=== PATIENT | female | born 1940 | race Two or more races ===

== ENCOUNTER 2022-03-24 09:27 | Inpatient (IN) | payer MEDICARE, MEDICAID ==
[~2022-03-24] VITALS: Ht 165.1 cm; Wt 68.0 kg
[2022-03-24] MEDS ORDERED: IV NS 0.9% 1,000 ML BAG IV ONE (10:00)
[2022-03-24 10:26] LABS: BASOPHILS % (AUTO) 0.7 % (0.0-2.0); EOSINOPHILS % (AUTO) 5.3 % (0.0-6.0); HEMATOCRIT 39 % (33-45); HEMOGLOBIN 12.8 g/dL (11.5-14.8); LYMPHOCYTES # (AUTO) 1.6 K/uL (0.8-4.8); LYMPHOCYTES % (AUTO) 25.1 % (20.0-44.0); MEAN CORPUSCULAR HGB CONC 32 g/dl (31.0-36.0); MEAN CORPUSCULAR VOLUME 86 fL (82-100); MONOCYTES # (AUTO) 0.5 K/uL (0.1-1.30); MONOCYTES % (AUTO) 8.4 % (2.0-12.0); NEUTROPHILS # (AUTO) 3.9 K/uL (1.8-8.9); NEUTROPHILS % (AUTO) 60.5 % (43.0-81.0); PLATELET COUNT (AUTO) 193 K/uL (150-450); RED BLOOD CELL COUNT(AUTO) 4.56 MIL/uL (4.0-5.2); WHITE BLOOD COUNT (AUTO) 6.4 K/uL (4.3-11.0)
[2022-03-24 10:50] LABS: CALCIUM, SERUM 8.7 mg/dL (8.5-10.1)
[2022-03-24 10:56] LABS: ALBUMIN 3.3 g/dL (3.4-5.0); BILIRUBIN,DIRECT 0.1 mg/dL (0.0-0.2); BILIRUBIN,TOTAL 0.3 mg/dL (0.2-1.0)
[2022-03-24 11:04] LABS: THYROID STIMULATING HORMONE 8.861 uIU/mL (0.358-3.74)
--- NOTE | 2022-03-24 11:55 | NUR ---
SHOSHANA, pt has low blood pressure, was found sitting on floor in home, career development manager found pt called [id number]
--- NOTE | 2022-03-24 11:56 | NUR ---
F/C inserted, patent flushing intact, urine is a clear yellow color, no foul odor noted normal
--- NOTE | 2022-03-24 11:56 | NUR ---
IV R AC, patent flushing, patent intact receiving MD orders of NS
--- NOTE | 2022-03-24 11:57 | NUR ---
pt has her point of care specialist and her daughter at bed side at this time, given warm blankets and socks for comfort and made comfortable in bed.
[2022-03-24] MEDS ORDERED: PARO20TA7 PO (12:55)
[2022-03-24] MEDS ORDERED: FERR325T29 PO (12:55)
[2022-03-24] MEDS ORDERED: CLON2TAB11 PO (12:55)
[2022-03-24] MEDS ORDERED: MILN100T PO (12:55)
[2022-03-24] MEDS ORDERED: DONE10TA44 PO (12:55)
[2022-03-24] MEDS ORDERED: FLUD0.1T3 PO (12:55)
[2022-03-24] MEDS ORDERED: ERGO500093 PO (12:55)
[2022-03-24] MEDS ORDERED: PREG50CA PO (12:55)
[2022-03-24] MEDS ORDERED: OMEP20CA15 PO (12:55)
[2022-03-24] MEDS ORDERED: AMIT100T2 PO (12:55)
[2022-03-24] MEDS ORDERED: LEVO100T9 PO (12:55)
[2022-03-24] MEDS ORDERED: CELE-85 PO (12:55)
[2022-03-24] MEDS ORDERED: PRIM50TA27 PO (12:55)
[2022-03-24] MEDS ORDERED: PRAV80TA21 PO (12:55)
[2022-03-24] MEDS ORDERED: ICOS1CAP PO (12:55)
--- NOTE | 2022-03-24 13:08 | NUR ---
MOVE SHEET SUBMITTED.
--- NOTE | 2022-03-24 13:29 | NUR ---
[facility] CALLED PUBLIC ADMINISTRATION PROFESSOR PAGED.
--- NOTE | 2022-03-24 13:39 | NUR ---
CALLED RADIOLOGY FOR CT SCAN, WILL FOOT DOCTOR PT
[2022-03-24] MEDS ORDERED: ONDANSETRON HCL/PF 4 MG/2 ML VIAL IVP PRN (14:00)
[2022-03-24] MEDS ORDERED: ACETAMINOPHEN 325 MG TABLET PO PRN (14:00)
[2022-03-24] MEDS ORDERED: ZOLPIDEM TARTRATE 5 MG TABLET PO PRN (14:00)
[2022-03-24] MEDS ORDERED: MAGNESIUM HYDROXIDE 30 ML UDC PO PRN (14:00)
[2022-03-24] MEDS ORDERED: Z GUARD REMEDY 4 OZ OINT TP PRN (14:00)
[2022-03-24] MEDS ORDERED: MAG HYDROX/AL HYDROX/SIMETH 30 ML UDC PO PRN (14:00)
--- NOTE | 2022-03-24 14:05 | NUR ---
PT RETURNED FROM RADIOLOGY
--- NOTE | 2022-03-24 14:08 | NUR ---
Urine specimen collect - sent to lab
--- NOTE | 2022-03-24 15:29 | NUR ---
pt to be admitted to room 312 - 1 , Report given to Stephanie AMADO on third floor, IV kept intact KVO, transferred with F/C as well, intact, patent urine flowing with gravity.
--- NOTE | 2022-03-24 16:10 | NUR ---
RN ADMITTING NOTE PT ARRIVED ON GURNEY TO UNIT ACCOMPANIED BY DAUGHTER AND 2 NURSES FROM THE ED. PT IS FARCI SPEAKING AND UNABLE TO UNDERSTAND KYRGY[place]. FAMILY PREFERS TO TRANSLATE. PT IS A/OX1-2, EPISODES OF CONFUSION BUT ABLE TO MAKE NEEDS KNOWN. PT IS ON ROOM AIR SATURATING AT 99% WITH WHEEZING WHILE RESTING IN BED. SUPPLEMENTAL OXYGEN DECLINED. TELE MONITOR IN PLACE READING SR, 75BPM. NO CARDIAC DISTRESS NOTED. BUTTERFIELD CATHETER IN PLACE DRAINING YELLOW URINE. PATIENT DENIES PAIN AT THIS TIME SAFETY PRECAUTIONS IN PLACE WITH BED IN LOWEST LOCKED POSITION,SIDE RAILS UP X3, CALL LIGHT AND TRY WITHIN REACH. ALL NEEDS MET AT THIS TIME. WILL CONTINUE TO MONITOR.
[2022-03-24] MEDS ORDERED: PANTOPRAZOLE 40 MG TABLET.DR PO ONE (16:15)
[2022-03-24 16:30] LABS: BILIRUBIN,URINE NEGATIVE (NEGATIVE); COLOR,URINE YELLOW (YELLOW); LEUKOCYTE ESTERASE ,URINE 1+ (NEGATIVE); NITRITE, URINE NEGATIVE (NEGATIVE); PROTEIN,URINE NEGATIVE (NEGATIVE); UGLUCOSE NEGATIVE (NEGATIVE); UROBILINOGEN,URINE 0.2 EU/dL (0.2)
[2022-03-24] MEDS ORDERED: Medication Not On Formulary EA (Icosapent Ethyl (Vascepa) 2 CAP) PO SCH (17:00)
[2022-03-24] MEDS ORDERED: OMEPRAZOLE 20 MG CAPSULE.DR PO SCH (17:00)
[2022-03-24] MEDS: IV NS 0.9% 1,000 ML IV PRN (17:17)
[2022-03-24 17:50] LABS: BACTERIA,URINE 1+ /HPF (None Seen); RBC,URINE 21-50 /HPF (0-2); SQUAMOUS EPITHELIAL CELL,UR 0-2 /HPF (None Seen)
--- NOTE | 2022-03-24 18:49 | NUR ---
CANINE SERVICE INSTRUCTOR TRAINER CLOSING NOTE PT IS AWAKE IN BED WITH DAUGHTER AT BEDSIDE. PT IS FARCI SPEAKING AND UNABLE TO UNDERSTAND [place]. FAMILY PREFERS TO TRANSLATE. PT IS A/OX1-2, ABLE TO MAKE NEEDS KNOWN. PT IS ON ROOM AIR SATURATING AT 99% WITH WHEEZING WHILE RESTING IN BED. SUPPLEMENTAL OXYGEN DECLINED. TELE MONITOR IN PLACE READING SR, 70BPM. NO CARDIAC DISTRESS NOTED. BUTTERFIELD CATHETER IN PLACE DRAINING YELLOW URINE. PATIENT DENIES PAIN AT THIS TIME SAFETY PRECAUTIONS IN PLACE WITH BED IN LOWEST LOCKED POSITION,SIDE RAILS UP X3, CALL LIGHT AND TRY WITHIN REACH. ALL NEEDS MET AT THIS TIME. WILL ENDORSE PAVAN TO TOGGLE PRESS OPERATOR NURSE
--- NOTE | 2022-03-24 19:30 | NUR ---
CHARACTER ARTIST OPENING NOTE RECEIVED PATIENT AWAKE IN BED WITH DAUGHTER AT BEDSIDE. PT IS A/O TIMES 3 ABLE TO MAKE NEEDS KNOWN IN FARSI LANGUAGE. ON ROOM AIR AND TOLERATING WELL. NOTED WITH AUDIBLE WHEEZING WHILE RESTING IN BED. WILL INFORM RT TO GIVE PRN BREATHING TREATMENT. ON TELE MONITOR READING SR, 76 BPM. NO PAIN NOTED. NO SOB NOTED. NO FACIAL GRIMACING NOTED IN PRESENCE OF THE DAUGHTER. BUTTERFIELD CATHETER IN PLACE DRAINING YELLOW URINE. ALL SAFETY PRECAUTIONS IN PLACE WITH BED IN LOWEST LOCKED POSITION,SIDE RAILS UP X3, CALL LIGHT AND TABLE WITHIN REACH. ALL NEEDS MET AT THIS TIME. EDUCATE AND REMIND THE PATIENT IN FARSI LANGUAGE TO PRESS CALL LIGHT FOR ANY ASSISTANCE. PATIENT VERBALIZED UNDERSTANDING. WILL CONTINUE TO MONITOR CLOSELY.
[2022-03-24 20:00] VITALS: BP 141/77
[2022-03-24] MEDS: ALBUTEROL FS 2.5 MG/0.5 ML VIAL.NEB NEB SCH (20:54)
--- NOTE | 2022-03-24 20:54 | NUR ---
RT RN ANI ADVISE PT HAS AUDIBLE WHEEZING, PRN NEB TX GIVEN
[2022-03-25] VITALS: BP 127/59
[2022-03-25 04:00] VITALS: BP 154/72
[2022-03-25] MEDS: IV NS 0.9% 1,000 ML IV PRN ×2 (04:31→18:34)
--- NOTE | 2022-03-25 07:00 | NUR ---
PROSTHETICS ASSISTANT OPENING NOTES PATIENT LAYING IN BED, A/O X 2 IN FARSI LANGUAGE BUT WITH CONFUSION, TOLERATING WELL ON ROOM AIR WITH NO S/S RESPIRATORY DISTRESS. NO COMPLAINTS OF PAIN OR DISCOMFORT AT THIS TIME. BUTTERFIELD CATHETER IN PLACE DRAINING CLEAR YELLOW URINE TO GRAVITY. R WRIST # 22 IV WITH NS @ 75 ML/HR. SAFETY MEASURES IN PLACE: BED IN LOWEST LOCKED POSITION, SIDE RAILS UP X 2, CALL LIGHT WITHIN REACH. WILL CONTINUE TO MONITOR. Addendum: 03/25/22 at 0858 by GORDO POLANCO RN TELE MONITOR IN PLACE READING SINUS RHYTHM 72
[2022-03-25 07:12] LABS: BILIRUBIN,URINE NEGATIVE (NEGATIVE); COLOR,URINE YELLOW (YELLOW); LEUKOCYTE ESTERASE ,URINE 1+ (NEGATIVE); NITRITE, URINE NEGATIVE (NEGATIVE); PH,URINE 6.5 (5.0-8.0); PROTEIN,URINE NEGATIVE (NEGATIVE); UGLUCOSE NEGATIVE (NEGATIVE); UROBILINOGEN,URINE 0.2 EU/dL (0.2)
[2022-03-25 07:16] LABS: BACTERIA,URINE Few /HPF (None Seen); SQUAMOUS EPITHELIAL CELL,UR Few /HPF (None Seen)
[2022-03-25] MEDS: PANTOPRAZOLE 40 MG TABLET.DR PO SCH ×2 (07:30→08:25)
--- NOTE | 2022-03-25 07:30 | NUR ---
SHIP RIGGER CLOSING NOTE PATIENT AWAKE IN BED. PT IS A/O TIMES 2 ABLE TO MAKE NEEDS KNOWN IN FARSI LANGUAGE. ON ROOM AIR AND TOLERATING WELL. NOTED WITH AUDIBLE WHEEZING WHILE RESTING IN BED. ON TELE MONITOR READING SR, 75 BPM. NO PAIN NOTED. NO SOB NOTED. NO FACIAL GRIMACING NOTED . BUTTERFIELD CATHETER IN PLACE DRAINING YELLOW URINE. URINE OUTPUT NOTED 2200 ML. ALL SAFETY PRECAUTIONS IN PLACE WITH BED IN LOWEST LOCKED POSITION,SIDE RAILS UP X3, CALL LIGHT AND TABLE WITHIN REACH. ALL NEEDS MET AT THIS TIME. EDUCATE AND REMIND THE PATIENT IN FARSI LANGUAGE TO PRESS CALL LIGHT FOR ANY ASSISTANCE. PATIENT VERBALIZED UNDERSTANDING. WILL ENDORSE FOR PAVAN.
[2022-03-25 07:35] LABS: BASOPHILS % (AUTO) 0.9 % (0.0-2.0); EOSINOPHILS % (AUTO) 4.3 % (0.0-6.0); HEMATOCRIT 38 % (33-45); HEMOGLOBIN 12.3 g/dL (11.5-14.8); LYMPHOCYTES # (AUTO) 1.5 K/uL (0.8-4.8); LYMPHOCYTES % (AUTO) 27.1 % (20.0-44.0); MEAN CORPUSCULAR HGB CONC 33 g/dl (31.0-36.0); MEAN CORPUSCULAR VOLUME 86 fL (82-100); MONOCYTES # (AUTO) 0.4 K/uL (0.1-1.30); MONOCYTES % (AUTO) 7.5 % (2.0-12.0); NEUTROPHILS # (AUTO) 3.4 K/uL (1.8-8.9); NEUTROPHILS % (AUTO) 60.2 % (43.0-81.0); PLATELET COUNT (AUTO) 182 K/uL (150-450); RED BLOOD CELL COUNT(AUTO) 4.38 MIL/uL (4.0-5.2); WHITE BLOOD COUNT (AUTO) 5.6 K/uL (4.3-11.0)
[2022-03-25 07:58] LABS: ALBUMIN 3.1 g/dL (3.4-5.0); BILIRUBIN,TOTAL 0.3 mg/dL (0.2-1.0); CALCIUM, SERUM 8.1 mg/dL (8.5-10.1); CREATININE 0.9 mg/dL (0.6-1.3); MAGNESIUM 2.3 mg/dL (1.8-2.4); PHOSPHORUS 2.9 mg/dL (2.5-4.9); POTASSIUM 3.7 mmol/L (3.5-5.1); TOTAL PROTEIN, SERUM 6.7 g/dL (6.4-8.2)
[2022-03-25 08:00] VITALS: BP 132/71
[2022-03-25] MEDS: LEVOTHYROXINE SODIUM 100 MCG TABLET PO SCH ×2 (08:24→08:51)
[2022-03-25] MEDS: FLUDROCORTISONE 0.1 MG TABLET PO SCH ×2 (08:24→08:51)
[2022-03-25] MEDS: PAROXETINE HCL 20 MG TABLET PO SCH ×2 (08:24→08:51)
[2022-03-25] MEDS: DONEPEZIL 5 MG TABLET PO SCH ×2 (08:25→08:51)
[2022-03-25] MEDS: FERROUS SULFATE (325 MG) 325 MG/TAB TABLET PO SCH ×2 (08:25→08:51)
[2022-03-25] MEDS: PRIMIDONE 50 MG TABLET PO SCH ×2 (08:25→08:51)
[2022-03-25] MEDS ORDERED: LEVOTHYROXINE SODIUM 100 MCG TABLET PO SCH (09:00)
[2022-03-25] MEDS: LEVOFLOXACIN 500 MG /D5W 100ML 500 MG in PREMIX 1 EA IV SCH (09:37)
[2022-03-25] MEDS: ALBUTEROL FS 2.5 MG/0.5 ML VIAL.NEB NEB SCH (18:22)
--- NOTE | 2022-03-25 19:00 | NUR ---
ACCOUNT DIRECTOR CLOSING NOTE PATIENT LAYING IN BED, A/O X 2 IN FARSI LANGUAGE BUT WITH CONFUSION, TOLERATING WELL ON ROOM AIR WITH NO S/S RESPIRATORY DISTRESS. NO COMPLAINTS OF PAIN OR DISCOMFORT AT THIS TIME. TELE MONITOR IN PLACE READING SINUS RHYTHM 70. BUTTERFIELD CATHETER IN PLACE DRAINING CLEAR YELLOW URINE TO GRAVITY. R WRIST # 22 IV WITH NS @ 75 ML/HR. SAFETY MEASURES IN PLACE: BED IN LOWEST LOCKED POSITION, SIDE RAILS UP X 2, CALL LIGHT WITHIN REACH. ALL NEEDS MET. WILL ENDORSE TO PARAMEDICAL AIDE FOR PAVAN. Addendum: 03/25/22 at 1920 by GORDO POLANCO RN 700 ML URINE OUTPUT DURING SHIFT
--- NOTE | 2022-03-25 19:30 | NUR ---
WEIGHER AND MIXER OPENING NOTE RECEIVED PATIENT AWAKE IN BED WITH SON ABHINAV AT BED SIDE. PT IS A/O TIMES 3 ABLE TO MAKE NEEDS KNOWN IN FARSI LANGUAGE. ON TELE MONITOR READING SR, 75BPM. NO PAIN NOTED. NO SOB NOTED. NO FACIAL GRIMACING NOTED . BUTTERFIELD CATHETER IN PLACE DRAINING YELLOW URINE. ALL SAFETY PRECAUTIONS IN PLACE WITH BED IN LOWEST LOCKED POSITION,SIDE RAILS UP X3, CALL LIGHT AND TABLE WITHIN REACH. ALL NEEDS MET AT THIS TIME. EDUCATE AND REMIND THE PATIENT IN FARSI LANGUAGE TO PRESS CALL LIGHT FOR ANY ASSISTANCE. PATIENT VERBALIZED UNDERSTANDING. WILL CONTINUE TO MONITOR CLOSELY.
[2022-03-25 20:00] VITALS: BP 117/54
[2022-03-26] VITALS: BP 134/80
[2022-03-26 04:00] VITALS: BP 129/62
[2022-03-26] MEDS: IV NS 0.9% 1,000 ML IV PRN (06:36)
--- NOTE | 2022-03-26 06:49 | NUR ---
POWER EQUIPMENT TECHNOLOGY INSTRUCTOR CLOSING NOTE PATIENT AWAKE IN BED. PT IS A/O TIMES 2 ABLE TO MAKE NEEDS KNOWN IN FARSI LANGUAGE. ON ROOM AIR AND TOLERATING WELL. ON TELE MONITOR READING SR. NO PAIN NOTED. NO SOB NOTED. NO FACIAL GRIMACING NOTED . BUTTERFIELD CATHETER IN PLACE DRAINING YELLOW URINE. URINE OUTPUT NOTED 600 ML. ALL SAFETY PRECAUTIONS IN PLACE WITH BED IN LOWEST LOCKED POSITION,SIDE RAILS UP X3, CALL LIGHT AND TABLE WITHIN REACH. ALL NEEDS MET AT THIS TIME. EDUCATE AND REMIND THE PATIENT IN FARSI LANGUAGE TO PRESS CALL LIGHT FOR ANY ASSISTANCE. PATIENT VERBALIZED UNDERSTANDING. WILL endorse for gricel.
--- NOTE | 2022-03-26 07:00 | NUR ---
FILTER ASSEMBLER OPENING NOTES PATIENT LAYING IN BED, A/O X 2, FARSI SPEAKING, TOLERATING WELL ON ROOM AIR WITH NO S/S RESPIRATORY DISTRESS. NO COMPLAINTS OF PAIN OR DISCOMFORT AT THIS TIME. TELE MONITOR IN PLACE READING SR. BUTTERFIELD CATH IN PLACE DRAINING CLEAR YELLOW URINE TO GRAVITY. SAFETY MEASURES IN PLACE: BED IN LOWEST LOCKED POSITION, SIDE RAILS UP X 2, CALL LIGHT WITHIN REACH. WILL CONTINUE TO MONITOR.
[2022-03-26] MEDS: PANTOPRAZOLE 40 MG TABLET.DR PO SCH (07:30)
[2022-03-26 08:00] VITALS: BP 165/84
[2022-03-26] MEDS: DONEPEZIL 5 MG TABLET PO SCH (08:20)
[2022-03-26] MEDS: PAROXETINE HCL 20 MG TABLET PO SCH (08:20)
[2022-03-26] MEDS: PRIMIDONE 50 MG TABLET PO SCH (08:20)
[2022-03-26] MEDS: LEVOFLOXACIN 500 MG /D5W 100ML 500 MG in PREMIX 1 EA IV SCH (08:21)
[2022-03-26] MEDS: FERROUS SULFATE (325 MG) 325 MG/TAB TABLET PO SCH (08:55)
[2022-03-26] MEDS: FLUDROCORTISONE 0.1 MG TABLET PO SCH (08:56)
[2022-03-26] MEDS: LEVOTHYROXINE SODIUM 100 MCG TABLET PO SCH (08:56)
[2022-03-26] MEDS ORDERED: LEVO500T90 PO (09:43)
--- NOTE | 2022-03-26 10:45 | NUR ---
MS RN HAND OFF NOTES - RECEIVED REPORT FROM OUTGOING NURSE GORDO. PATIENT AOX2-3 WITH DAUGHTER AT BEDSIDE, PATIENT FOR DC TODAY PER MD, NO ACUTE DISTRESS NOTED, IV ACCESS ON RW G#22 RUNNING NS AT 75 ML/HR, AWAITING PATIENT TO URINATE BEFORE SENDING HOME. WILL CONTINUE TO MONITOR.
--- NOTE | 2022-03-26 11:15 | NUR ---
MS RN NOTES - PATIENT IS NOTED TO HAVE LEFT EYE REDNESS - MD ORDERED Tobramycin Sulfate/Dexameth 1 drop each eye QID for 5 days HOME MEDICATION, DAUGHTER IS AWARE
[2022-03-26] MEDS ORDERED: TOBR5DRO2 EACHEYE (11:20)
--- NOTE | 2022-03-26 13:25 | NUR ---
MS SAMPLE STEAMER NOTES - PT DISCHARGED TO HOME IN STABLE CONDITION. PT AOX3-4, FARSI SPEAKING WITH DAUGHTER NEGIM TRANSLATING. ABLE TO MAKE NEEDS KNOWN. ON ROOM AIR STABLE, NOT IN ANY RESPIRATORY DISTRESS, VITAL SIGNS TAKEN, STABLE AND RECORDED. PT SKIN IS INTACT, REFUSED TO TAKE PICTURES, DENIES PAIN NOR DISCOMFORT AT THIS TIME. NO BELONGINGS ASIDE FROM SHIRT THE DAUGHTER TOOK WITH HER. DISCHARGE INSTRUCTIONS GIVEN TO SON AND DAUGHTER NEGIM. IV ACCESS REMOVED - R WRIST G#22 NO NOTED BLEEDING, DRY PRESSURE GAUZE DRESSING APPLIED AT SITE. PT LEFT THE UNIT AT ROUND 1318 VIA WHEELCHAIR ACCOMPANIED BY STORMY CAIN TO THE LOBBY SAFELY. MD AND CHARGE NURSE AWARE OF THE DC.
== END 2022-03-26 13:25 | disposition home or self-care (01) | DRG 689 ==
LOC: ER 09:40 → TELE 15:32 → MED 03-26 08:26
PROVIDERS: ADMIT Internal Medicine; ATTEND Internal Medicine
DX: N39.0 Urinary tract infection, site not specified (principal); G93.41 Metabolic encephalopathy; E03.9 Hypothyroidism, unspecified; I10 Essential (primary) hypertension; I25.10 Atherosclerotic heart disease of native coronary artery without angina pectoris; Z86.16 Personal history of COVID-19; Z88.0 Allergy status to penicillin; Z88.2 Allergy status to sulfonamides; F32.A Depression, unspecified; F03.90 Unspecified dementia, unspecified severity, without behavioral disturbance, psychotic disturbance, mood disturbance, and anxiety
CPT/HCPCS: 36415; 70450-TC; 70551-TC; 71045-TC; 80048-TC; 80053-TC; 80076-TC; 81001; 82962-TC; 83735-TC; 84100-TC; 84443-TC; 85025-TC; 87081-TC; 87086-TC; A4216; C9803; G0378; J1956; J7030

== ENCOUNTER 2023-10-30 11:09 | Inpatient (IN) | payer MEDICAID, MEDICARE ==
[~2023-10-30] VITALS: Ht 162.6 cm; Wt 79.4 kg
[~2023-10-30 11:09] MED LIST: AMIT100T2 PO; CELE-85 PO; CLON2TAB11 PO; DONE10TA44 PO; ERGO500093 PO; FERR325T29 PO; FLUD0.1T3 PO; ICOS1CAP PO; LEVO100T9 PO; LEVO500T90 PO; MILN100T PO; OMEP20CA15 PO; PARO20TA7 PO; PRAV80TA21 PO; PREG50CA PO; PRIM50TA27 PO; TOBR5DRO2 EACHEYE
[2023-10-30] MEDS ORDERED: MYRBETRIQ PO (14:05)
[2023-10-30] MEDS ORDERED: CALC-1143 PO (14:05)
[2023-10-30] MEDS ORDERED: MAGNESIUM PO (14:05)
[2023-10-30] MEDS ORDERED: DONE5TAB7 PO (14:05)
[2023-10-30] MEDS ORDERED: CHOL200059 PO (14:05)
[2023-10-30] MEDS ORDERED: VITAMIN C PO (14:05)
[2023-10-30] MEDS ORDERED: MONT10TA22 PO (14:05)
[2023-10-30] MEDS ORDERED: FENO145T21 PO (14:06)
[2023-10-30 14:16] VITALS: O2SAT 99
[2023-10-30] MEDS ORDERED: MAG HYDROX/AL HYDROX/SIMETH 30 ML UDC PO PRN (14:30)
[2023-10-30] MEDS ORDERED: Z GUARD REMEDY 4 OZ OINT TP PRN (14:30)
[2023-10-30] MEDS ORDERED: ONDANSETRON HCL/PF 4 MG/2 ML VIAL IVP PRN (14:30)
[2023-10-30] MEDS ORDERED: MAGNESIUM HYDROXIDE 30 ML UDC PO PRN (14:30)
[2023-10-30] MEDS ORDERED: ACETAMINOPHEN 325 MG TABLET PO PRN (14:30)
[2023-10-30 14:54] LABS: BASOPHILS # (AUTO) 0.1 K/uL (0.0-0.2); BASOPHILS % (AUTO) 0.9 % (0.0-2.0); EOSINOPHILS # (AUTO) 0.2 K/uL (0.0-0.7); EOSINOPHILS % (AUTO) 3.4 % (0.0-6.0); HEMATOCRIT 41 % (33-45); HEMOGLOBIN 13.2 g/dL (11.5-14.8); LYMPHOCYTES # (AUTO) 1.5 K/uL (0.8-4.8); LYMPHOCYTES % (AUTO) 25.6 % (20.0-44.0); MEAN CORPUSCULAR HEMOGLOBIN 28 PG (26.0-33.0); MEAN CORPUSCULAR HGB CONC 33 g/dl (31.0-36.0); MEAN CORPUSCULAR VOLUME 85 fL (82-100); MONOCYTES # (AUTO) 0.5 K/uL (0.1-1.30); MONOCYTES % (AUTO) 8.4 % (2.0-12.0); NEUTROPHILS # (AUTO) 3.5 K/uL (1.8-8.9); NEUTROPHILS % (AUTO) 61.7 % (43.0-81.0); PLATELET COUNT (AUTO) 197 K/uL (150-450); RED BLOOD CELL COUNT(AUTO) 4.75 MIL/uL (4.0-5.2); WHITE BLOOD COUNT (AUTO) 5.8 K/uL (4.3-11.0)
[2023-10-30 15:04] LABS: ALANINE AMINOTRANSFERASE 15 U/L (12-78); ALBUMIN 3.1 g/dL (3.4-5.0); ALKALINE PHOSPHATASE 69 U/L (46-116); ASPARTATE AMINOTRANSFERASE 13 U/L (15-37); BILIRUBIN,TOTAL 0.5 mg/dL (0.2-1.0); CALCIUM, SERUM 9.1 mg/dL (8.5-10.1); CARBON DIOXIDE 31 mmol/L (21-32); CHLORIDE 103 mmol/L (98-107); CREATININE 0.8 mg/dL (0.6-1.3); GLUCOSE 86 mg/dL (74-106); POTASSIUM 3.4 mmol/L (3.5-5.1); SODIUM SERUM 140 mmol/L (136-145); TOTAL PROTEIN, SERUM 6.4 g/dL (6.4-8.2); UREA NITROGEN, BLOOD 15 mg/dL (7-18)
[2023-10-30] MEDS ORDERED: Medication Not On Formulary EA (Icosapent Ethyl (Vascepa) 2 GM) PO SCH (17:00)
[2023-10-30 17:29] LABS: APPEARANCE,URINE CLEAR (CLEAR); BILIRUBIN,URINE NEGATIVE (NEGATIVE); BLOOD, URINE NEGATIVE Ery/uL (NEGATIVE); COLOR,URINE YELLOW (YELLOW); KETONES,URINE NEGATIVE (NEGATIVE); LEUKOCYTE ESTERASE ,URINE 1+ (NEGATIVE); NITRITE, URINE NEGATIVE (NEGATIVE); PH,URINE 6.5 (5.0-8.0); PROTEIN,URINE NEGATIVE (NEGATIVE); UGLUCOSE NEGATIVE (NEGATIVE); UROBILINOGEN,URINE 0.2 EU/dL (0.2)
[2023-10-30 18:05] LABS: ADD URINE CULTURE YES; BACTERIA,URINE 1+ /HPF (None Seen); MUCUS,URINE Few /LPF (None Seen); RBC,URINE 0-2 /HPF (0-2)
[2023-10-30] MEDS: CALCIUM CARBONATE 500 MG TAB.CHEW PO SCH (18:20)
[2023-10-30 20:10] VITALS: BP 139/67; TEMP 97.5; O2SAT 94
[2023-10-30] MEDS: PAROXETINE HCL 20 MG TABLET PO SCH (20:53)
[2023-10-30] MEDS: PREGABALIN 100 MG CAPSULE PO SCH (21:07)
[2023-10-30] MEDS: PRIMIDONE 50 MG TABLET PO SCH (21:07)
[2023-10-30] MEDS: ZOLPIDEM TARTRATE 5 MG TABLET PO PRN (22:40)
[2023-10-31 06:46] LABS: BASOPHILS % (AUTO) 0.8 % (0.0-2.0); EOSINOPHILS # (AUTO) 0.2 K/uL (0.0-0.7); EOSINOPHILS % (AUTO) 3.8 % (0.0-6.0); HEMATOCRIT 42 % (33-45); HEMOGLOBIN 13.6 g/dL (11.5-14.8); LYMPHOCYTES # (AUTO) 1.6 K/uL (0.8-4.8); LYMPHOCYTES % (AUTO) 29.7 % (20.0-44.0); MEAN CORPUSCULAR HEMOGLOBIN 28 PG (26.0-33.0); MEAN CORPUSCULAR HGB CONC 33 g/dl (31.0-36.0); MEAN CORPUSCULAR VOLUME 86 fL (82-100); MONOCYTES # (AUTO) 0.4 K/uL (0.1-1.30); MONOCYTES % (AUTO) 8.3 % (2.0-12.0); NEUTROPHILS # (AUTO) 3.1 K/uL (1.8-8.9); NEUTROPHILS % (AUTO) 57.4 % (43.0-81.0); PLATELET COUNT (AUTO) 201 K/uL (150-450); RED BLOOD CELL COUNT(AUTO) 4.86 MIL/uL (4.0-5.2); RED CELL DISTRIBUTION WIDTH 13.8 % (11.5-15.0); WHITE BLOOD COUNT (AUTO) 5.4 K/uL (4.3-11.0)
[2023-10-31 07:19] LABS: CALCIUM, SERUM 9.6 mg/dL (8.5-10.1); CARBON DIOXIDE 32 mmol/L (21-32); CHLORIDE 101 mmol/L (98-107); CREATININE 0.8 mg/dL (0.6-1.3); GLUCOSE 87 mg/dL (74-106); PHOSPHORUS 4.1 mg/dL (2.5-4.9); POTASSIUM 3.5 mmol/L (3.5-5.1); SODIUM SERUM 140 mmol/L (136-145); UREA NITROGEN, BLOOD 13 mg/dL (7-18)
[2023-10-31 07:30] VITALS: BP 127/87; TEMP 97.7; O2SAT 94
[2023-10-31] MEDS: LEVOTHYROXINE SODIUM 100 MCG TABLET PO SCH (07:46)
[2023-10-31] MEDS: FLUDROCORTISONE 0.1 MG TABLET PO SCH (07:46)
[2023-10-31] MEDS: PANTOPRAZOLE 40 MG TABLET.DR PO SCH (07:47)
[2023-10-31] MEDS: MONTELUKAST SODIUM (10MG) 10 MG TABLET PO SCH (08:27)
[2023-10-31] MEDS: ATORVASTATIN 10 MG TABLET PO SCH (08:27)
[2023-10-31] MEDS: CHOLECALCIFEROL 1,000 UNIT TABLET (VIT D3) PO SCH (08:28)
[2023-10-31] MEDS: FERROUS SULFATE (325 MG) 325 MG/TAB TABLET PO SCH (08:28)
[2023-10-31] MEDS: DONEPEZIL 5 MG TABLET PO SCH (08:28)
[2023-10-31] MEDS: FENOFIBRATE NANOCRYS (145 MG) 145 MG TABLET PO SCH (08:29)
[2023-10-31 08:38] LABS: MAGNESIUM 2.6 mg/dL (1.8-2.4)
[2023-10-31] MEDS ORDERED: DONEPEZIL 5 MG TABLET PO SCH (09:00)
[2023-10-31] MEDS ORDERED: MILNACIPRAN HCL 100 MG PO SCH (09:00)
[2023-10-31] MEDS: NEOMY SULF/BACITRAC ZN/POLY 15 GM TUBE TP SCH (11:06)
[2023-10-31 15:56] VITALS: BP 146/66; TEMP 98.6; O2SAT 94
== END 2023-10-31 20:00 | disposition home health service (06) | DRG 115 ==
LOC: ER 11:10 → MED 16:19
PROVIDERS: ADMIT Nurse Practitioner Acute Care; ATTEND Internal Medicine
DX: S09.90XA Unspecified injury of head, initial encounter (principal); F03.90 Unspecified dementia, unspecified severity, without behavioral disturbance, psychotic disturbance, mood disturbance, and anxiety; E66.9 Obesity, unspecified; W01.0XXA Fall on same level from slipping, tripping and stumbling without subsequent striking against object, initial encounter; Y92.009 Unspecified place in unspecified non-institutional (private) residence as the place of occurrence of the external cause; G89.29 Other chronic pain; E87.6 Hypokalemia; I25.10 Atherosclerotic heart disease of native coronary artery without angina pectoris; Z68.30 Body mass index [BMI] 30.0-30.9, adult; E78.5 Hyperlipidemia, unspecified; E89.0 Postprocedural hypothyroidism; I10 Essential (primary) hypertension; M19.90 Unspecified osteoarthritis, unspecified site; Z88.0 Allergy status to penicillin; Z88.2 Allergy status to sulfonamides; R26.89 Other abnormalities of gait and mobility; R22.0 Localized swelling, mass and lump, head; S01.111A Laceration without foreign body of right eyelid and periocular area, initial encounter; Y93.9 Activity, unspecified; R40.2142 Coma scale, eyes open, spontaneous, at arrival to emergency department; R40.2362 Coma scale, best motor response, obeys commands, at arrival to emergency department; R40.2252 Coma scale, best verbal response, oriented, at arrival to emergency department
CPT/HCPCS: 36415; 70450-TC; 72125-TC; 72131-TC; 73564-TC; 80048-TC; 80053-TC; 81001; 83735-TC; 84100-TC; 85025-TC; 97112-TC; 97116-TC; 97530-TC; A6403; G0378